=== PATIENT | female | born 1955 | race Caucasian/White ===

== ENCOUNTER 2018-02-23 12:05 | Emergency (ER) | payer BC ==
--- NOTE | 2018-02-23 12:16 | PDOC ---
History of Present Illness - General Chief Complaint: Pain Stated Complaint: LEFT SHOULDER & FOREARM PAIN Time Seen by Provider: 02/23/18 12:16 - History of Present Illness Initial Comments: 02/23/18 12:34 63yo female with L paraspinal thoracic pain, neck pain, and pain down the left arm x 4 days. No trauma. Pt states she was in the [place] with her grandchildren, no injury noted. No tic bites. No bug bites. No rashes. No cp/sob /palpitations. No recent infections. No cough/congestion. No f/c. No abd pain. No paresthesias that are new. No abd pain. No n/v/d. No dysuria. No bowman. No weakness. No other complaints. Pain to L upper shoulder posteriorly, then radiated down the arm and then into the forearm. States the pain feels that something is squeezing her bones. PMHx: neuropathy, spinal stenosis (3rd cortisone injection to low back) PShx: L partial knee replacement, R total knee, hysterectomy Allergies: PCN, Levaquin Meds: aleve, gabapentin Soc: quit smoking 1 year ago Past History - Past Medical History Allergies/Adverse Reactions: Allergies Allergy/AdvReac Type Severity Reaction Status Date / Time Penicillins Allergy Verified 02/23/18 12:16 Home Medications: Ambulatory Orders Gabapentin [Neurontin] 300 mg PO BID 02/23/18 Ibuprofen [Motrin -] 600 mg PO TID PRN #15 tablet 02/23/18 Methocarbamol [Robaxin -] 500 mg PO TID PRN #15 tablet 02/23/18 Naproxen Sodium [Aleve] 440 mg PO BID PRN 02/23/18 Oxycodone HCl/Acetaminophen [Percocet 5-325 mg Tablet] 1 tab PO Q6H PRN #10 tablet MDD 4 tabs 02/23/18 Anemia: No Asthma: No Cancer: No Cardiac Disorders: No CVA: No COPD: No CHF: No Dementia: No Diabetes: No GI Disorders: No Disorders: No HTN: No Hypercholesterolemia: No Liver Disease: No Seizures: No Thyroid Disease: No - Surgical History Abdominal Surgery: No Appendectomy: No Cardiac Surgery: No Cholecystectomy: No Lung Surgery: No Neurologic Surgery: No Orthopedic Surgery: Yes (RIGHT TKR 12/13) - Suicide/Smoking/Psychosocial Hx Smoking Status: No Smoking History: Former smoker Have you smoked in the past 12 months: Yes Number of Cigarettes Smoked Daily: 24 If you are a former smoker, when did you quit?: 3 WEEKS AGO,USING PATCH Hx Alcohol Use: No Drug/Substance Use Hx: No Substance Use Type: None Hx Substance Use Treatment: No Review of Systems - Review of Systems Able to Perform ROS?: Yes Is the patient limited Nauruan proficient: No Constitutional: No: Chills, Fever HEENTM: No: Nose Congestion, Throat Pain, Throat Swelling Respiratory: No: Cough, Shortness of Breath Cardiac (ROS): No: Chest Pain, Irregular Heart Rate, Palpitations, Chest Tightness ABD/GI: No: Diarrhea, Nausea, Vomiting, Abdominal cramping : No: Burning, Dysuria Integumentary: No: Bruising, Erythema, Lesions, Lumps, Pruritus, Rash Neurological: Yes: Paresthesia (legs - chronic). No: Headache, Numbness, Tingling, Weakness All Other Systems: Reviewed and Negative *Physical Exam - Vital Signs 02/23/18 12:38 Selected Entries 02/23/18 12:13 Temperature 97.6 F Pulse Rate 79 Respiratory 18 Rate Blood Pressure 148/79 Blood Pressure 102 Mean O2 Sat by Pulse 98 Oximetry (%) Weight 95.254 kg - Physical Exam General Appearance: Yes: Nourished, Appropriately Dressed. No: Apparent Distress HEENT: positive: EOMI, Normal ENT Inspection Neck: positive: Trachea midline, Supple, Tender lateral (L lateral lower c spine ttp). negative: Tender, Tender midline Respiratory/Chest: positive: Lungs Clear, Normal Breath Sounds. negative: Chest Tender, Respiratory Distress, Accessory Muscle Use, Wheezing Cardiovascular: positive: Regular Rhythm, Regular Rate, S1, S2 Gastrointestinal/Abdominal: positive: Normal Bowel Sounds, Soft. negative: Tender, Guarding, Rebound, Tenderness Musculoskeletal: positive: Normal Inspection, Muscle Spasm, Other (L ttp over paraspinal upper thoracics and across rhomboid and trapezius muscle that reproduces her pain). negative: CVA Tenderness, Decreased Range of Motion, Vertebral Tenderness Extremity: positive: Normal Capillary Refill, Normal Inspection, Normal Range of Motion, Other (well healed scars from knee surgery) Integumentary: positive: Normal Color, Dry, Warm. 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 negative: Numbness, Sensory Deficit, Confused Heart Score/ECG Review - ECG Intrepretation Comment:: 02/23/18 13:39 sinus at 73, nl axis, nl interval, no acute st/t wave findings Medical Decision Making - Medical Decision Making 02/23/18 12:40 a/p: 63yo female with 4 days of L lateral upper back and shoulder pain that radiates down L arm -low suspicion for acs, however will obtain ekg -most likely musculoskeletal pain -lungs cta, no cough, no f/c, no signs/symptoms of infection -no joint swelling, however will test for LYME given travel to [employer] [employer] and [place] pain -hx of spinal stenosis to lumbar spine with neuropathy to legs, will obtain ct cervical spine given pain radiates down L arm - poss radiculopathy -will obtain xrays -medicate for pain and muscle spasm -no PE risk factors, PERC negative -no cp -no rashes -will monitor and reassess 02/23/18 13:30 pain in shoulder improved still with pain in forearm will remedicate heading for ct imaging xrays reviewed and negative for acute pathology 02/23/18 13:40 pt is ambulatory in the ED with a steady gait 02/23/18 14:[address] results with the patient States she will undergo MRI imaging as an outpt and has an appt with her PMD on sunday states she will take all meds as prescribed. Discussed avoiding contact sports or heavy lifting. Avoiding neck injuyr. Discussed all precautions and reasons to return to the ED currently on exam - no weakness, no paresthesias, no sensory changes to UE discussed following up with a older adult social work specialist discussed following up with her neurologist answered all questions stable for d/c to home at the bedside, both patient and her fam agree with the plan. *DC/Admit/Observation/Transfer Diagnosis at time of Disposition: Cervical radiculopathy, Arm pain - Discharge Dispostion Disposition: HOME Condition at time of disposition: Stable Decision to Admit order: No - Prescriptions Prescriptions: Ibuprofen [Motrin -] 600 mg PO TID PRN #15 tablet PRN Reason: Pain Methocarbamol [Robaxin -] 500 mg PO TID PRN #15 tablet PRN Reason: Muscle Spasms Oxycodone HCl/Acetaminophen [Percocet 5-325 mg Tablet] 1 tab PO Q6H PRN #10 tablet MDD 4 tabs PRN Reason: Pain Level 7 - 10 - Referrals Referrals: Leslie Weiss MD [Non Staff, Medical] - Jorge Alberto Weiss MD [Primary Care Provider] - Abilio Viveros MD, FAANS [Staff Physician] - - Patient Instructions Printed Discharge Instructions: DI for Cervical Radiculopathy Additional Instructions: Please take all medications as directed. Please follow up with your PMD on sunday as scheduled. Please do not drive or operate heavy machinery while taking the percocet. Please make an appointment to see the neurosurgeon. Please do not participate in contact sports. Please no heavy lifting. If you develop numbness, tingling, weakness in the arms or legs please return to the ED immediately. If you develop worsening pain please return to the ED immediately. Please be careful with taking any additional tylenol as the percocet has tylenol in it. - Post Discharge Activity - Attestations Physician Attestion: 02/23/18 14:31 I, Dr. Beryl Rosa, DO, attest that this document has been prepared under my direction and personally reviewed by me in its entirety. I further attest, that it accurately reflects all work, treatment, procedures and medical decision -making performed by me.
[2018-02-23 12:25] VITALS: BP 148/79; PULSE 79; TEMP 97.6; BMI 34.4
[2018-02-23] MEDS ORDERED: METHOCARBAMOL 500 MG TABLET PO ONE (12:32)
[2018-02-23] MEDS ORDERED: KETOROLAC TROMETHAMINE 60 MG/2 ML VIAL IM ONE (12:32)
[2018-02-23] MEDS ORDERED: METHOCARBAMOL 500 MG TABLET ONE (12:45)
[2018-02-23] MEDS ORDERED: KETOROLAC TROMETHAMINE 60 MG/2 ML VIAL ONE (12:45)
--- NOTE | 2018-02-23 18:49 | EKG ---
Test Reason : Blood Pressure : / mmHG Vent. Rate : 073 BPM Atrial Rate : 073 BPM P-R Int : 164 ms QRS Dur : 088 ms QT Int : 418 ms P-R-T Axes : 034 012 033 degrees QTc Int : 460 ms NORMAL SINUS RHYTHM NORMAL ECG WHEN COMPARED WITH ECG OF 20-MAY-2007 09:51, NO SIGNIFICANT CHANGE WAS FOUND Confirmed by ROSANA ROSARIO MD ([id number]) on 02/23/2018 6:48:58 PM Referred By: ROBERT OCHOA Confirmed By:ROSANA ROSARIO MD
== END 2018-02-23 14:38 | disposition home or self-care (01) ==
LOC: FER 12:05
PROC: 3E0233Z Introduction of Anti-inflammatory into Muscle, Percutaneous Approach (ICD-10-PCS; principal; 2018-02-23)
DX: M54.12 Radiculopathy, cervical region (principal); M79.602 Pain in left arm
CPT/HCPCS: 36415; 72125-TC; 73030-TC-LT-FY; 73090-TC-LT-FY; 86618; 93005; 99282-25

== ENCOUNTER 2018-04-11 14:20 | Emergency (ER) | payer BC, OTHER ==
[2018-04-11 14:41] VITALS: BP 125/69; PULSE 79; TEMP 98.5; BMI 34.8
[2018-04-11] MEDS ORDERED: ACETAMINOPHEN 500 MG TABLET (FP) PO ONE (17:15)
--- NOTE | 2018-04-11 17:47 | PDOC ---
History of Present Illness - General Chief Complaint: Pain, Acute Stated Complaint: LEFT HIP/KNEE PAIN Time Seen by Provider: 04/11/18 14:48 Past History - Past Medical History Allergies/Adverse Reactions: Allergies Allergy/AdvReac Type Severity Reaction Status Date / Time Penicillins Allergy Verified 04/11/18 14:21 Home Medications: Ambulatory Orders Gabapentin [Neurontin] 300 mg PO BID 02/23/18 Methocarbamol [Robaxin -] 500 mg PO BID 04/11/18 Anemia: No Asthma: No Cancer: No Cardiac Disorders: No CVA: No COPD: No CHF: No Dementia: No Diabetes: No GI Disorders: No Disorders: No HTN: No Hypercholesterolemia: No Liver Disease: No Seizures: No Thyroid Disease: No - Surgical History Abdominal Surgery: No Appendectomy: No Cardiac Surgery: No Cholecystectomy: No Lung Surgery: No Neurologic Surgery: No Orthopedic Surgery: Yes (RIGHT TKR 12/13) - Suicide/Smoking/Psychosocial Hx Smoking Status: No Smoking History: Former smoker Have you smoked in the past 12 months: No Number of Cigarettes Smoked Daily: 24 If you are a former smoker, when did you quit?: 3 WEEKS AGO,USING PATCH Information on smoking cessation initiated: No 'Breaking Loose' booklet given: 02/23/18 Hx Alcohol Use: No Drug/Substance Use Hx: No Substance Use Type: None Hx Substance Use Treatment: No *Physical Exam - Vital Signs Last Vital Signs Temp Pulse Resp BP Pulse Ox 98.5 F 79 18 125/69 98 04/11/18 14:28 04/11/18 14:28 04/11/18 14:28 04/11/18 14:28 04/11/18 14:28 ED Treatment Course - RADIOLOGY Radiology Studies Ordered: Category Date Time Status FOOT-LEFT [RAD] Stat Radiology 04/11/18 17:10 Ordered PELVIS [RAD] Stat Radiology 04/11/18 17:15 Ordered *DC/Admit/Observation/Transfer Diagnosis at time of Disposition: Left foot pain, Low back pain - Discharge Dispostion Disposition: HOME Condition at time of disposition: Stable Decision to Admit order: No - Referrals - Patient Instructions Printed Discharge Instructions: DI for Low Back Pain, DI for Foot Pain Additional Instructions: You were seen in the ED for complaints of L foot pain and low back pain after a fall. In the ED you were evaluated with imaging. Your results were unremarkable. There does not appear to be an acute need for immediate hospitalization. You are advised to follow up with your primary care physician within 1 week. Take over the counter Motrin and Tylenol for pain management. Return to the ED immediately if you experience worsening L foot pain, numbness or tingling in the L foot, muscle weakness or inability to walk. - Post Discharge Activity Forms/Work/School Notes: Back to Work
[2018-04-11] MEDS ORDERED: ACETAMINOPHEN 500 MG TABLET (FP) ONE (17:48)
== END 2018-04-11 19:00 | disposition home or self-care (01) ==
LOC: FER 14:20
DX: M79.672 Pain in left foot (principal); M54.5 Low back pain; Z87.891 Personal history of nicotine dependence
CPT/HCPCS: 72170-TC-FY; 73630-TC-LT; 99282-25

== ENCOUNTER 2018-08-01 11:52 | Emergency (ER) | payer OTHER, BC ==
[2018-08-01 12:01] VITALS: BP 130/62; PULSE 70; BMI 31.6
--- NOTE | 2018-08-01 12:34 | PDOC ---
History of Present Illness - General Chief Complaint: Injury Stated Complaint: PAIN Time Seen by Provider: 08/01/18 12:33 - History of Present Illness Initial Comments: 63 year old female with PMH of and bilateral knee replacements (partial on the right and total on the left all a few years ago) presenting with right arm pain after falling at work. 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 Denied any pre-syncopal syndrome, chest pain, nausea , vomiting , headache, or any witnessed seizure like activity. She did land on her knees and said she had some swelling and vega originally but during this interview she is able to ambulate with only minor pain in her left knee. 08/01/18 13:34 Past History - Past Medical History Allergies/Adverse Reactions: Allergies Allergy/AdvReac Type Severity Reaction Status Date / Time levofloxacin [From Levaquin] Allergy Verified 08/01/18 11:57 Penicillins Allergy Verified 08/01/18 11:57 Home Medications: Ambulatory Orders Gabapentin [Neurontin] 300 mg PO BID 02/23/18 Methocarbamol [Robaxin -] 500 mg PO BID 04/11/18 Anemia: No Asthma: No Cancer: No Cardiac Disorders: No CVA: No COPD: No CHF: No Dementia: No Diabetes: No GI Disorders: No Disorders: No HTN: No Hypercholesterolemia: No Liver Disease: No Seizures: No Thyroid Disease: No - Surgical History Abdominal Surgery: No Appendectomy: No Cardiac Surgery: No Cholecystectomy: No Lung Surgery: No Neurologic Surgery: No Orthopedic Surgery: Yes (RIGHT TKR 12/13) - Suicide/Smoking/Psychosocial Hx Smoking Status: No Smoking History: Unknown if ever smoked Have you smoked in the past 12 months: No Number of Cigarettes Smoked Daily: 24 If you are a former smoker, when did you quit?: 3 WEEKS AGO,USING PATCH 'Breaking Loose' booklet given: 02/23/18 Hx Alcohol Use: No Drug/Substance Use Hx: No Substance Use Type: None Hx Substance Use Treatment: No Review of Systems - Review of Systems Constitutional: No: Chills, Diaphoresis, Fever, Loss of Appetite HEENTM: No: Eye Pain, Blurred Vision, Tearing Respiratory: No: Cough, Orthopnea, Shortness of Breath Cardiac (ROS): No: Chest Pain, Edema, Irregular Heart Rate ABD/GI: No: Diarrhea, Nausea, Vomiting : No: Burning, Dysuria Musculoskeletal: Yes: Joint Pain. No: Muscle Pain, Muscle Weakness Integumentary: Yes: Lesions (sligt abrasion over the right knee). No: Bruising Neurological: No: Headache, Numbness, Paresthesia Psychiatric: No: Anxiety, Depression Endocrine: No: Flushing, Increased Urine Hematologic/Lymphatic: No: Anemia, Blood Clots, Easy Bleeding *Physical Exam - Vital Signs Last Vital Signs Temp Pulse Resp BP Pulse Ox 70 18 130/62 95 08/01/18 11:57 08/01/18 11:57 08/01/18 11:57 08/01/18 11:57 - Physical Exam General Appearance: Yes: Nourished, Appropriately Dressed. No: Apparent Distress HEENT: positive: EOMI, TUNG, Normal ENT Inspection, Normal Voice Neck: positive: Trachea midline, Normal Thyroid, Supple. negative: Tender, Rigid Respiratory/Chest: positive: Lungs Clear, Normal Breath Sounds. negative: Chest Tender, Respiratory Distress Cardiovascular: positive: Regular Rhythm, Regular Rate Musculoskeletal: positive: Decreased Range of Motion. negative: Normal Inspection (tenderness at radial head with pain on supiantion, pronation, and flexion/ extension of elbow.) Extremity: positive: Normal Capillary Refill, Tender. negative: Normal Inspection (per above), Normal Range of Motion Integumentary: positive: Normal Color, Dry, Warm Neurologic: positive: Fully Oriented, Alert, Normal Mood/Affect, Normal Response , Motor Strength 5/5, Other (She had some paresthesias when this frst happened but currently neurovascularly intact.) Moderate Sedation - Procedure Monitoring Vital Signs: Procedure Monitoring Vital Signs Temperature Pulse Rate 70 08/01/18 11:57 Respiratory Rate 18 08/01/18 11:57 Blood Pressure 130/62 08/01/18 11:57 O2 Sat by Pulse Oximetry (%) 95 08/01/18 11:57 Medical Decision Making - Medical Decision Making 63 year old female with right elbow pain after fall with out stretched hand. XR demonstrated radial head fracture non-displaced. Spoke to Dr. Andres's PA Spike and he recommended a sling and follow up within the next few days at the office. Patient understands. 08/01/18 13:58 *DC/Admit/Observation/Transfer Diagnosis at time of Disposition: Radial head fracture Qualifiers: Encounter type: initial encounter Fracture type: closed Fracture alignment: nondisplaced Laterality: right Qualified Code(s): S52.124A - Nondisplaced fracture of head of right radius, initial encounter for closed fracture - Discharge Dispostion Disposition: HOME Condition at time of disposition: Improved Decision to Admit order: No - Referrals Referrals: Mason Andres MD [Staff Physician] - - Patient Instructions Printed Discharge Instructions: How to Use a Sling Additional Instructions: Please use Tylenol and ibuprofen at home for the pain. Please call the orthopedic surgeon today to make an appointment as soon as you can. Please return to the ED if you have pain worsening without relief with these medications. Also return if you have any new or worsening symptoms. - Post Discharge Activity
--- NOTE | 2018-08-01 12:42 | PDOC ---
Attending Attestation - HPI HPI: 08/01/18 14:17 The patient is a 63 year old female with a significant past medical history of bilateral knee replacements (R partial, L total), who presents to the emergency department today complaining of right arm pain after a fall when at work. 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 Patient reports pain and edema after collapsing, but currently has minimal pain on left knee. Denied any pre-syncopal syndrome or any witnessed seizure like activity. The patient denies chest pain, shortness of breath, headache and dizziness. Denies fever, chills, nausea, vomit, diarrhea and constipation. Denies dysuria, frequency, urgency and hematuria. Allergies: levofloxacin, penicillin Past surgical history: knee replacements (R partial, L total) Social history: No reported - Medical Decision Making 08/01/18 13:51 Call placed to /Dr. Horn, case discussed with YAMIL Lala. <Anuja Dickens - Last Filed: 08/01/18 14:27> - Resident Resident Name: Alireza Wren - ED Attending Attestation I have performed the following: I have examined & evaluated the patient, The case was reviewed & discussed with the resident, I agree w/resident's findings & plan, Exceptions are as noted - Physicial Exam PE: 08/01/18 14:37 On examination Pt is awake and alert Answers all questions appropriately No evidence of head traumma No midline neck tenderness RRR CTA No abd tenderness Ranges knees bilaterally, Right elbow tender to palpation, limited range of motion, No lacerations No bruising noted - Medical Decision Making 08/01/18 14:42 63 yo RHD F s/p fall onto right arm No head trauma No LOC, No amnesia Xray demonstrates radial head fracture Call placed to ortho Plan is for sling and follow up with Ortho Follow up tomorrow <Rakel Gutierrez - Last Filed: 08/01/18 14:53> Attestations - Attestations 08/01/18 13:52 Documentation prepared by Anuja Dickens, acting as director of medical education for Rakel Gutierrez MD. <Anuja Dickens - Last Filed: 08/01/18 14:27>
== END 2018-08-01 14:45 | disposition home or self-care (01) ==
LOC: JER 11:52
DX: S52.124A Nondisplaced fracture of head of right radius, initial encounter for closed fracture (principal); W18.39XA Other fall on same level, initial encounter; Y93.89 Activity, other specified; Y92.89 Other specified places as the place of occurrence of the external cause; Y99.0 Civilian activity done for income or pay
CPT/HCPCS: 73070-TC-RT-FY; 73090-TC-RT-FY; 73110-TC-RT-FY; 99281-25

== ENCOUNTER 2019-03-06 09:54 | Day surgery (SDC) | payer OTHER ==
[2019-03-04 15:48] VITALS: BMI 33.9
--- NOTE | 2019-03-06 06:46 | HP ---
[facility] - Chief Complaint Chief Complaint: left knee pain - Past Medical History Allergies/Adverse Reactions: Allergies Allergy/AdvReac Type Severity Reaction Status Date / Time levofloxacin [From Levaquin] Allergy Intermediate Swelling Verified 03/04/19 15: 49 Penicillins Allergy Unknown Verified 03/04/19 15:49 - Current Medications Current Medications: Home Medications Medication Instructions Recorded Cbd Cream TP PRN 03/04/19 [facility] Physical Exam - Physical Examination General Appearance: Well Nourished, Well Developed, Alert & Oriented x3 ENT: Clear Lung: Normal air movement Heart: Regular rate & rhythm Extremities: Other (left knee- well healed incision,+swelling,ttp,decr rom, nvi, mri +lmt) Neurological: Intact, Alert, Oriented [facility] Impression/Plan - Impression/Plan Impression: left knee internal derangement s/p ukr Operative Procedure: left knee arthroscopy Date to be Performed: 03/06/19
[~2019-03-06 09:54] MED LIST: BUPIVACAINE HCL/PF 0.5% (5 MG/ML) 30 ML VIAL IJ ONE; DEXAMETHASONE SOD PHOSPHATE 4 MG/1 ML VIAL ONE; LIDOCAINE HCL/PF 2% SDV 5ML VIAL ONE; MIDAZOLAM HCL 2 MG/2 ML SINGLE DOSE VIAL ONE; PROPOFOL 20 ML ONE; ceFAZolin SODIUM 1 GM VIAL IVPB ONE; ceFAZolin SODIUM 1 GM VIAL ONE
--- NOTE | 2019-03-06 10:24 | OP ---
Operative Note - Note: Operative Date: 03/06/19 Pre-Operative Diagnosis: left knee pain, lateral meniscus tear, OA Operation: left knee arthroscopy, partial lateral meniscectomy, debridement chondroplasty Post-Operative Diagnosis: Same as Pre-op Surgeon: Jaspal Horn Anesthesiologist/FISHER WEIR: Randell Barnett Anesthesia: General, Local Specimens Removed: shavings Estimated Blood Loss (mls): 0 Drains, Volume Out (mls): 0 Blood Volume Replaced (mls): 0 Fluid Volume Replaced (mls): 500 Operative Report Dictated: Yes
[2019-03-06] MEDS ORDERED: KETOROLAC TROMETHAMINE 30 MG/1 ML VIAL IVPUSH ONE ×2 (10:25→10:27)
[2019-03-06] MEDS ORDERED: ONDANSETRON 4 MG/2 ML VIAL IVPUSH PRN (10:27)
[2019-03-06] MEDS ORDERED: oxyCODONE HCL 5 MG TABLET PO PRN (10:27)
[2019-03-06] MEDS ORDERED: LACTATED RINGERS SOLUTION 1,000 ML IV SCH (10:30)
--- NOTE | 2019-03-06 11:12 | OP ---
DATE OF OPERATION: 03/06/2019 PREOPERATIVE DIAGNOSIS: Left knee pain. POSTOPERATIVE DIAGNOSIS: Left knee pain, lateral meniscus tear, osteoarthritis. PROCEDURE: Left knee arthroscopy, partial lateral meniscectomy, and debridement with chondroplasty. SURGEON: Jaspal Lee MD TALENT ACQUISITION PROJECT MANAGER: None. ANESTHESIOLOGIST: Randell Barnett MD ANESTHESIA: LMA with local injection of 20 mL 0.5% Marcaine. DRAINS: None. COMPLICATIONS: None. SPECIMEN: Arthroscopic shavings. BLOOD LOSS: None. BLOOD GIVEN: None. FLUID REPLACEMENT: 500 mL. INDICATIONS: This patient is a 64-year-old female with a preoperative diagnosis of left knee pain. She is status post medial MAKOplasty. Her pain is lateral and patellofemoral. She understands the potential risks, complications, alternatives, and benefits to surgery versus nonsurgical treatment. She understands she has arthritis. She may need a total knee replacement. The surgery may or may not give her symptomatic relief. DESCRIPTION OF PROCEDURE: The patient was brought to the operating room. Peripheral IV placed. IV sedation given. Ancef 2 g IV was given. LMA anesthesia was induced. Ample Webril was placed around the left upper thigh. Tourniquet was applied. The Styrofoam ring applied. The C-clamp leg iglesias applied. The left lower extremity was prepped and draped in a sterile fashion, elevated, exsanguinated with Esmarch bandage. Tourniquet inflated to 250 mmHg. A superior medial outflow portal was established. A lateral portal was established. An arthroscope was then introduced into the joint under direct visualization using a spinal needle. A medial port was established. Diagnostic arthroscopy was performed. The medial MAKOplasty looked great. There were no cracks, crevices, fissures, or loosening of the prostheses. There was some scar tissue around the periphery. This was shaved away with the curved shaver, but overall the medial compartment looked great. I do not think that is the cause of her pain. In the intercondylar notch, there was a lot of bone spurring. Some bone spurs were removed. The ACL was intact but looked a little beaten up with some torn fibers and fraying. This was debrided. There was some scar tissue but on actual cyclops lesion, but the scar tissue was removed. The scar tissue frankly was from the anterior horn of the lateral meniscus. In the lateral compartment, the patient was seen to have wide areas of grade 3 and some areas of grade 4 osteoarthritis of the lateral femoral condyle. JASPAL LEE M.D. [id number]
--- NOTE | 2019-03-06 11:19 | OP ---
DATE OF OPERATION: 03/06/2019 Continue from page #3 In the lateral compartment, the patient was seen to have a significant complex tear of the entire lateral meniscus. Using a combination of straight basket forceps and a curved shaver, I did a partial lateral meniscectomy of the body, posterior horn, and anterior aspect including the coronary ligament, which was completely frayed and unstable. The patient did have areas of grade 4 chondromalacia of the lateral femoral condyle and lateral tibial plateau. Gentle debridement and chondroplasty was performed here as well. This was cleaned up. Photographs taken before and after. Next, the patellofemoral joint was inspected, and unfortunately, there was significant grade 4 osteoarthritis here as well. Debridement, chondroplasty was performed in this compartment as well including removing synovitis and excessive Hoffa side pad. When I was done, the knee was copiously irrigated and washed out. All instrumentation and excess saline removed. The arthroscopy portals were closed with 3-0 nylon sutures, 20 mL 0.5% Marcaine introduced into the joint. The area was then washed and dried, covered with Xeroform, 4 x 4, Webril, and Loco bandage. The tourniquet was taken down after a total tourniquet time of 20 minutes. There were no complications during the case. GERI LEE M.D. [id number]
--- NOTE | 2019-03-06 11:23 | PN ---
Progress Note (short form) - Note Progress Note: Anesthesia post op: Called to bedside for possible atrial fibrillation noted on EKG. EKG strip from the time shows irregular rate and rhythm with no discernable p waves. By the time I arrived at bedside the patient reverted to sinus rhythm with a rate in the 60s. 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 A 12 lead EKG showed NSR with no evidence of ischemia. A complete metabolic panel was ordered. Pending normal results, the patient will sign sent home with a recommendation to schedule a visit with her pmd for follow up. Instructions were given to the patient to retuen to an emergency room if she experiences palpitations, lightheadedness or chest pain.
[2019-03-06 11:50] LABS: ALBUMIN 3.3 g/dl (3.4-5.0); BILIRUBIN,TOTAL 0.4 mg/dL (0.2-1); CALCIUM 8.6 mg/dL (8.5-10.1); CREATININE 0.7 mg/dL (0.55-1.3); MAGNESIUM 2.1 mg/dL (1.8-2.4); PHOSPHOROUS 3.7 mg/dL (2.5-4.9); POTASSIUM 4.3 mmol/L (3.5-5.1); TOT PROT 6.3 g/dl (6.4-8.2)
--- NOTE | 2019-03-06 12:23 | EKG ---
Test Reason : Blood Pressure : / mmHG Vent. Rate : 066 BPM Atrial Rate : 066 BPM P-R Int : 184 ms QRS Dur : 092 ms QT Int : 460 ms P-R-T Axes : 036 022 040 degrees QTc Int : 482 ms NORMAL SINUS RHYTHM NORMAL ECG WHEN COMPARED WITH ECG OF 05-FEB-2019 10:32, NO SIGNIFICANT CHANGE WAS FOUND Confirmed by MANNIE STATON MD ([id number]) on 03/06/2019 12:22:49 PM Referred By: Jaspal Horn Confirmed By:MANNIE STATON MD
[2019-03-06 15:27] VITALS: TEMP 98
[2019-03-06 15:40] VITALS: BP 134/75; PULSE 80
--- NOTE | 2019-03-07 18:33 | PATH ---
Surgical Pathology Report Patient Name: MARY ANNE AC [facility]. Rec. #: [id number] /Age/Gender: 1955 (Age: 64) / F Account: [id number] Location: [facility] SUR[facility]ICAL Taken: 03/06/2019 Received: 03/06/2019 Reported: 03/07/2019 Physicians: Jaspal Horn M.D. Specimen(s) Received LEFT KNEE SHAVINGS Clinical History Left knee tear Final Diagnosis KNEE SHAVINGS, LEFT, ARTHROSCOPY, PARTIAL LATERAL MENISCECTOMY, DEBRIDEMENT CHONDROPLASTY: FRAGMENTS OF CARTILAGE, DENSE FIBROCONNECTIVE TISSUE, ADIPOSE TISSUE, AND SYNOVIUM. Electronically Signed Mita Whitehead M.D. Gross Description Received in formalin, labeled "left knee shavings," is a 4.5 x 4 x 2 cm. aggregate of hinojosa-yellow soft tissue fragments. A residential sales representative portion is submitted in one cassette. MLSZ/03/06/2019 sankathi/03/06/2019
== END 2019-03-06 14:20 | disposition home or self-care (01) ==
LOC: JASU-SURG 09:54
PROVIDERS: ATTEND Orthopaedic Surgery
PROC: 0SBD4ZZ Excision of Left Knee Joint, Percutaneous Endoscopic Approach (ICD-10-PCS; principal; 2019-03-06 09:00)
DX: S83.272A Complex tear of lateral meniscus, current injury, left knee, initial encounter (principal); X58.XXXA Exposure to other specified factors, initial encounter; Y93.89 Activity, other specified; Y92.9 Unspecified place or not applicable; Y99.9 Unspecified external cause status; M17.12 Unilateral primary osteoarthritis, left knee
CPT/HCPCS: 36415; 80053; 83735; 84100; 88304-TC; 93005; 93010; 94760